=== PATIENT | female | born 1955 | race Caucasian/White ===

== ENCOUNTER 2022-08-30 08:32 | Day surgery (SDC) | payer MEDICARE, BC ==
[~2022-08-30] VITALS: Ht 149.9 cm; Wt 63.5 kg
[~2022-08-30 08:32] MED LIST: AZEL0.1S NARES; CALC0.009 TOP; D3 S1CAP PO; FLON1SPR; L-LY500T6 PO; NAPR-885 PO; PRESCAP PO; REFR0.5D8 OU; SYNT88TA2 PO; TEMA15CA2 PO
[2022-08-30] MEDS ORDERED: SCOPOLAMINE 1MG TRANSDERMAL PATCH TOP ONE (08:50)
[2022-08-30] MEDS ORDERED: LR 1,000 ML IV SCH ×2 (08:50→12:45)
[2022-08-30] MEDS ORDERED: propofoL 200 MG/20 ML VIAL As Ordered ONE (09:28)
[2022-08-30] MEDS ORDERED: fentaNYL 100 MCG/2 ML INJECTION As Ordered ONE ×2 (09:28→10:28)
[2022-08-30] MEDS ORDERED: MIDAZOLAM INJ 2MG/2ML VIAL (J2250 PER 1MG) As Ordered ONE (09:28)
[2022-08-30] MEDS ORDERED: ONDANSETRON 4MG 2ML VIAL As Ordered ONE (09:29)
[2022-08-30] MEDS ORDERED: LIDOCAINE 2% 100MG/5ML SDV (FOR ANES.) As Ordered ONE (09:29)
[2022-08-30] MEDS ORDERED: ROCURONIUM BROMIDE 50MG/5ML VIAL As Ordered ONE (09:30)
[2022-08-30] MEDS ORDERED: LIDOCAINE W/EPINEPHRINE 1% 20ML VIAL As Ordered ONE (10:01)
[2022-08-30] MEDS ORDERED: ACETAMINOPHEN 1000MG 100ML IV BAG As Ordered ONE (10:40)
[2022-08-30] MEDS ORDERED: oxyCODONE 5MG TAB PO PRN (12:45)
[2022-08-30] MEDS ORDERED: fentaNYL 100 MCG/2 ML INJECTION IV PRN (12:45)
[2022-08-30] MEDS ORDERED: ONDANSETRON 4MG 2ML VIAL IV PRN (12:45)
[2022-08-30] MEDS ORDERED: HYDROMORPHONE HCL 0.5 MG/ 0.5 ML SYRINGE (J1170 PER 1) IV PRN (12:45)
[2022-08-30] MEDS ORDERED: NALOXONE INJ 0.4MG/1ML VIAL As Ordered ONE (13:06)
[2022-08-30 15:19] VITALS: BP 157/80
== END 2022-08-30 16:04 | disposition home or self-care (01) ==
LOC: M SDC 08:32
PROVIDERS: ATTEND Otolaryngology
DX: D11.0 Benign neoplasm of parotid gland (principal); E03.9 Hypothyroidism, unspecified; K21.9 Gastro-esophageal reflux disease without esophagitis; L40.9 Psoriasis, unspecified; F41.9 Anxiety disorder, unspecified; F32.A Depression, unspecified; Z79.899 Other long term (current) drug therapy; Z88.2 Allergy status to sulfonamides
CPT/HCPCS: 42440; 88307; J0131; J1100; J2250; J2310; J2405; J3010